=== PATIENT | female | born 1980 | race African-American/Black ===

== ENCOUNTER 2016-05-13 16:17 | Emergency (ER) | payer OTHER ==
[~2016-05-13] VITALS: Ht 167.6 cm; Wt 84.8 kg
[2016-05-13 16:22] VITALS: BP 121/73
[2016-05-13 16:57] LABS: ABSOLUTE BASOPHIL COUNT 0.1 /CUMM (0.0-0.2); ABSOLUTE EOSINOPHIL COUNT 0.1 /CUMM (0.0-0.7); ABSOLUTE GRANULOCYTE CT 4.7 /CUMM (1.4-6.5); ABSOLUTE LYMPH COUNT 2.5 /CUMM (1.2-3.4); ABSOLUTE MONOCYTE COUNT 0.4 /CUMM (0.10-0.60); EOSINOPHIL % 1.2 % (0-5); GRANULOCYTE % 60.2 % (42.2-75.2); MEAN CORPUSCULAR HGB 28.9 PG (27.0-31.0); MEAN CORPUSCULAR HGB CONC 33.3 G/DL (33.0-37.0); MEAN CORPUSCULAR VOLUME 86.9 FL (81.0-99.0); MEAN PLATELET VOLUME 7.9 FL (7.4-10.4); PLATELET COUNT 264 /CUMM (130-400); RBC DISTRIBUTION WIDTH 14.1 % (11.5-14.5); RED BLOOD CELL CT 4.49 /CUMM (4.20-5.40); WHITE BLOOD CELL COUNT 7.7 /CUMM (4.8-10.8)
[2016-05-13] MEDS ORDERED: NITROFURANTOIN100 M6 PO (17:56)
[2016-05-13] MEDS ORDERED: MIRENA1 EACH (17:57)
--- NOTE | 2016-05-13 18:15 | ED GI/GU/ABDOMINAL COMPLAINT ---
History of Present Illness General Chief Complaint: Abdominal Pain/Flank Pain Stated Complaint: SHARP ABD PAIN, RECENT UTI AND STOMACH BUG Source: patient Exam Limitations: no limitations Vital Signs & Intake/Output Vital Signs & Intake/Output Vital Signs Date Time Temp Pulse Resp B/P Pulse O2 O2 Flow FiO2 Ox Delivery Rate 05/13 1807 Room Air 05/13 1622 99.1 82 20 121/73 96 Room Air Allergies Coded Allergies: No Known Allergies (05/13/16) Reconcile Medications Levonorgestrel (Mirena) 20 MCG/24 HOUR (5 YEARS) IUD CONTROL (Reported) Nitrofurantoin Monohyd/M-Cryst (Nitrofurantoin [place]-Mcr 100 MG) 100 MG CAPSULE 1 CAP PO Q12H UTI (Reported) Triage Note: TRIAGE: PT TO ER C/C LOW ABD PAIN. ONSET YESTERDAY. WAS TREATED FOR UTI ON SUNDAY, DEVELOPED THE GI BUG ON SUNDAY SO DIDN'T START THE ABX UNTIL SUNDAY. STILL HAS 2 DAYS LEFT OF ABX. DENIES URINARY S/S AT PRESENT. -N/V/D. UNSURE OF LMP SHE TAKES MERENA. Triage Nurses Notes Reviewed? yes ? N Is pt currently ? No HPI: 1 week ago patient went to the walk-in center for urinary symptoms, foul- smelling urine, she was given Macrobid for urinary tract infection, the following day she felt ill, was vomiting and had large amounts of diarrhea. This continued for 2 days. She has decreased appetite. Symptoms then resolved. She has no further urinary symptoms and she did finish her course of antibiotics after not taking it for 2 days. She presents here with complaints of intermittent sharp crampy lower abdominal pain into the suprapubic and left lower quadrant region. She denies any nausea or vomiting no fever no flulike illness. She has not had a bowel movement since Sunday which is abnormal for her, usually she is very regular with her bowel movements. She is passing gas. She appears abdominal surgery to evaluate for appendicitis however was found not to have appendicitis and her appendix was not removed per the patient. She has no vaginal discharge or bleeding. No abnormal periods. She is requesting STD testing however has no symptoms (CHANDAN DARNELL) Past History Travel History Traveled to [place] past 21 day No Medical History Any Pertinent Medical History? 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 No (CHANDAN DARNELL) Review of Systems Review of Systems Constitutional: Reports: see HPI. EENTM: Reports: no symptoms. Respiratory: Reports: no symptoms. Cardiovascular: Reports: no symptoms. GI: Reports: see HPI. Genitourinary: Reports: no symptoms. Musculoskeletal: Reports: no symptoms. Skin: Reports: no symptoms. Neurological/Psychological: Reports: no symptoms. Hematologic/Endocrine: Reports: no symptoms. Immunologic/Allergic: Reports: no symptoms. All Other Systems: Reviewed and Negative (CHANDAN DARNELL) Physical Exam Physical Exam General Appearance: well developed/nourished Respiratory: normal breath sounds, chest non-tender, no respiratory distress Cardiovascular: regular rate/rhythm Gastrointestinal: normal bowel sounds, soft, no organomegaly, VERY MINIMAL TENDERNESS TO LEFT LOWER QUADRANT REGION Comments: Well-developed well-nourished no apparent distress. HEENT: Atraumatic, extraocular motion intact Neck: Supple, no lymphadenopathy Back: Nontender no CVA tenderness Respiratory: No respiratory distress Extremities: No edema, full range of motion Neuro: Alert and oriented x3 Psych: Mood affect normal, normal memory normal judgment. Skin: Warm and dry, no rash on exposed skin Core Measures ACS in differential dx? No Severe Sepsis Present: No Septic Shock Present: No (CHANDAN DARNELL) Progress Differential Diagnosis: AAA, AMI, appendicitis, biliary colic, bowel obstruction , colon cancer, cholecystitis, diverticulitis, ectopic , endometritis, esophageal varices, gastritis, hepatitis, hernia, hemorrhoids, ischemic bowel, inflamm bowel dis, intrauterine , kidney stone, Silvia-Jorge Alberto tear, ovarian cyst, ovarian torsion, pancreatitis, PID/cervicitis, peptic ulcer, PUD/ GERD, perforated viscous, SBO, threatened AB, UTI/pyelo Plan of Care: Orders Procedure Date/time Status Add-on Test (ER Only) 02/25 1811 Active URINE 05/13 1630 Complete URINALYSIS 05/13 1630 Complete COMPREHENSIVE METABOLIC PANEL 05/13 163 Complete CBC WITHOUT DIFFERENTIAL 05/13 163 Complete Laboratory Tests 05/13/16 1750: Urine Color YEL, Urine Clarity CLEAR, Urine pH 7.0, Ur Specific [place] 1.020, Urine Protein NEG, Urine Ketones TRACE H, Urine Nitrite NEG, Urine Bilirubin NEG, Urine Urobilinogen 1.0, Ur Leukocyte Esterase NEG, Ur Microscopic EXAM NOT REQUIRED, Urine Hemoglobin NEG, Urine Glucose NEG, Urine Test NEGATIVE 05/13/16 1651: Anion Gap 9, Estimated GFR > 60, BUN/Creatinine Ratio 17.1, Glucose 110 H, Calcium 9.5, Total Bilirubin 0.5, AST 19, ALT 26, Alkaline Phosphatase 59, Total Protein 7.3, Albumin 4.2, Globulin 3.1, Albumin/Globulin Ratio 1.4, CBC w Diff NO MAN DIFF REQ, RBC 4.49, MCV 86.9, MCH 28.9, RDW 14.1, MPV 7.9, Gran % 60.2, Lymphocytes % 32.4, Monocytes % 5.2, Eosinophils % 1.2, Basophils % 1.0, Absolute Granulocytes 4.7, Absolute Lymphocytes 2.5, Absolute Monocytes 0.4, Absolute Eosinophils 0.1, Absolute Basophils 0.1, PUBS MCHC 33.3 Initial ED EKG: none Comments: The patient's laboratory values are unremarkable, she is not , urinalysis is normal. A urine gonorrhea and chlamydia probe was sent at patient 's request. She is asymptomatic. She does not have any significant tenderness, she has very mild tenderness in the left lower quadrant region, she has not had a bowel movement in 4 days. This is likely secondary to constipation, given the fact that she has normal labs and a fairly benign exam and did not feel as though a CT scan is necessary at this time. She had decision-making with patient was discussed, she agrees to return with worsening abdominal pain nausea vomiting fever. I recommended Metamucil, increase fiber, increase water and increased exercise. (CHANDAN DARNELL) Departure Departure Disposition: HOME OR SELF CARE Condition: Stable Clinical Impression Primary Impression: Abdominal pain Qualifiers: Abdominal location: left lower quadrant Qualified Code: R10.32 - Left lower quadrant pain Referrals: PATIENT HAS NO PRIMARY CARE DR (PCP/Family) Additional Instructions: Drink plenty of water, increase fiber in your diet, consider taking Metamucil [id number] to help with having a bowel movement. Return to the ER with worsening abdominal pain, nausea, vomiting or fever Departure Forms: Customer Survey General Discharge Information (RAJWINDER VALDEZ,CHANDAN) PA/MANAGER RESPIRATORY CARE Co-Sign Statement Statement: ED Attending supervision documentation- [] I saw and evaluated the patient. I have also reviewed all the pertinent lab results and diagnostic results. I agree with the findings and the plan of care as documented in the PA's/MANAGER RESPIRATORY CARE's documentation. [X] I have reviewed the ED Record and agree with the PA's/MANAGER RESPIRATORY CARE's documentation. [] Additions or exceptions (if any) to the PAs/MANAGER RESPIRATORY CARE's note and plan are summarized below: [] (KG CORDERO,KESHA Lugo)
== END 2016-05-13 18:25 ==
LOC: ERH 16:17
PROVIDERS: Emergency Medicine
DX: R10.32 Left lower quadrant pain (principal)
CPT/HCPCS: 81003; 81025; 87491; 87591

== ENCOUNTER 2016-06-30 22:29 | Emergency (ER) | payer OTHER ==
[~2016-06-30] VITALS: Ht 167.6 cm; Wt 83.9 kg
[~2016-06-30 22:29] MED LIST: MIRENA1 EACH; NITROFURANTOIN100 M6 PO
[2016-06-30 22:52] VITALS: BP 117/68
--- NOTE | 2016-06-30 23:53 | ED EAR COMPLAINT ---
History of Present Illness General Chief Complaint: Ear Complaints Stated Complaint: EAR PAIN Source: patient Exam Limitations: no limitations Vital Signs & Intake/Output Vital Signs & Intake/Output Vital Signs Date Time Temp Pulse Resp B/P Pulse O2 O2 Flow FiO2 Ox Delivery Rate 06/30 2252 99.3 76 18 117/68 99 Room Air ED Intake and Output 07/01 0000 06/30 1200 Intake Total Output Total Balance Patient 185 lb Weight Allergies Coded Allergies: No Known Allergies (05/13/16) Reconcile Medications Ciprofloxacin HCl/Dexameth (Ciprodex Otic Suspension) 0.3 %-0.1 % DROPS.SUSP 4 GTT OT BID otitis externa use for 7 days Ibuprofen 800 MG TABLET 1 TAB PO Q8 PRN PAIN Levonorgestrel (Mirena) 20 MCG/24 HOUR (5 YEARS) IUD CONTROL (Reported) Nitrofurantoin Monohyd/M-Cryst (Nitrofurantoin [place]-Mcr 100 MG) 100 MG CAPSULE 1 CAP PO Q12H UTI (Reported) Triage Note: RECEIVED 35 YO FEMALE C/O SHARP RIGHT EAR PAIN SINCE YESTERDAY. Triage Nurses Notes Reviewed? yes : No Patient currently breastfeeds: No HPI: Patient is a 35-year-old female presents complaining of right ear pain. Pain onset yesterday. Pain is a sharp pain is currently moderate to severe. Patient has been taking Tylenol with no improvement. Patient denies fevers, chills, sore throat, dyspnea. (CHANDAN ALEX) Past History Travel History Traveled to [place] past 21 day No Medical History Any Pertinent Medical History? 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 No (CHANDAN ALEX) Review of Systems Review of Systems Constitutional: Denies: chills, fever. EENTM: Reports: see HPI. Respiratory: Denies: cough, short of breath. Cardiovascular: Denies: chest pain. GI: Denies: abdominal pain. Musculoskeletal: Reports: no symptoms. Skin: Reports: no symptoms. Neurological/Psychological: Reports: no symptoms. Hematologic/Endocrine: Reports: no symptoms. Immunologic/Allergic: Reports: no symptoms. (CHANDAN ALEX) Physical Exam Physical Exam General Appearance: well developed/nourished, alert, awake Head: atraumatic, normal appearance Eyes: Bilateral: normal appearance, PERRL, EOMI. Ears: Left: canal normal. Right: erythema (EAC). Bilateral: Tympanic normal. Nose: normal inspection Mouth/Throat: normal mouth inspection, pharynx normal Neck: normal inspection, supple, full range of motion Cardiovascular/Respiratory: regular rate/rhythm, no respiratory distress Back: normal inspection, normal range of motion Neurologic/Psych: no motor/sensory deficits, awake, alert, oriented x 3, normal gait, normal mood/affect Skin: intact, normal color, warm/dry (CHANDAN ALEX) Progress Differential Diagnoses I considered the following diagnoses in my evaluation of the patient: Otitis media, otitis externa, sinusitis, mastoiditis, viral upper respiratory infection Plan of Care: Patient afebrile, nontoxic appearing. Exam appears consistent with mild otitis externa. Patient appears stable for discharge. Initial ED EKG: none (CHANDAN ALEX) Departure Departure Time of Disposition: 2358 Disposition: HOME OR SELF CARE Condition: Stable Clinical Impression Primary Impression: Otitis externa Referrals: UNKNOWN (PCP/Family) Additional Instructions: Follow-up with your primary care provider at the [facility] if no improvement by Sunday or Sunday. Return to the emergency department if worsening of symptoms. Departure Forms: Customer Survey General Discharge Information Prescriptions: Current Visit Scripts Ciprofloxacin HCl/Dexameth (Ciprodex Otic Suspension) 4 GTT OT BID #1 BOT use for 7 days Ibuprofen 1 TAB PO Q8 PRN PAIN #20 TAB (CHANDAN ALEX) PA/GATE MANAGER Co-Sign Statement Statement: ED Attending supervision documentation- [] I saw and evaluated the patient. I have also reviewed all the pertinent lab results and diagnostic results. I agree with the findings and the plan of care as documented in the PA's/GATE MANAGER's documentation. [X] I have reviewed the ED Record and agree with the PA's/GATE MANAGER's documentation. [] Additions or exceptions (if any) to the PAs/GATE MANAGER's note and plan are summarized below: [] (MELIDA CORDERO,CHRISTI Echevarria)
[2016-07-01] MEDS ORDERED: CIPRODEX OTIC7.5 ML OT (00:01)
[2016-07-01] MEDS ORDERED: IBUPROFEN800 M1 PO (00:01)
== END 2016-07-01 00:11 ==
LOC: ERH 22:29
DX: H60.91 Unspecified otitis externa, right ear (principal)